=== PATIENT | female | born 1970 | race Caucasian/White ===

== ENCOUNTER 2023-01-27 17:07 | Emergency (ER) | payer OTHER ==
[~2023-01-27] VITALS: Ht 167.6 cm; Wt 70.3 kg
[2023-01-27] MEDS ORDERED: METHIMAZOLE10 MG PO (17:20)
[2023-01-27] MEDS ORDERED: ANASTROZOLE1 MG PO (17:21)
== END 2023-01-27 20:08 | disposition home or self-care (01) ==
LOC: ER 17:07
DX: S09.8XXA Other specified injuries of head, initial encounter (principal); W19.XXXA Unspecified fall, initial encounter; Y93.89 Activity, other specified; Y92.89 Other specified places as the place of occurrence of the external cause